=== PATIENT | male | born 1945 | race Caucasian/White ===

== ENCOUNTER 2022-11-05 13:45 | Emergency (ER) | payer MEDICARE, BC ==
[2022-11-05 14:41] LABS: HEMATOCRIT 42.9 % (38.4-49.7); HEMOGLOBIN 15.1 g/dL (12.9-16.9); MEAN CORPUSCULAR HEMOGLOBIN 28.3 pg (31.6-35.5); MEAN CORPUSCULAR HGB CONC 35.2 g/dL (31.6-35.5); MEAN CORPUSCULAR VOLUME 80.5 fL (81.4-99.0); RED BLOOD CELL COUNT 5.33 M/uL (4.14-5.76); WHITE BLOOD CELL COUNT,WBC 6.5 K/uL (3.2-11.0)
[2022-11-05] MEDS ORDERED: Sodium Chloride 0.9% 500 ML IV ONE (14:49)
[2022-11-05 15:10] LABS: CALCIUM 9.4 mg/dL (8.5-10.1); CREATININE 1.5 mg/dL (0.8-1.3); EST CRCL DRUG DOSING (CG) 43.94 mL/min; MAGNESIUM 2.2 mg/dL (1.8-2.4); POTASSIUM,K 3.2 mmol/L (3.6-5.2); TSH ULTRASENSITIVE 5.08 uIU/mL (0.358-3.740)
[2022-11-05 15:12] LABS: ANION GAP 13.2 mmol/L (5.0-14.0)
[2022-11-05] MEDS ORDERED: Potassium Chloride 20 MEQ Tab.ER PO ONE (15:23)
[2022-11-05] MEDS ORDERED: Metoprolol Tartrate 25 MG Tab PO ONE (15:48)
== END 2022-11-05 17:05 ==
LOC: JP.ED 13:45
DX: I49.8 Other specified cardiac arrhythmias (principal); I10 Essential (primary) hypertension; E03.9 Hypothyroidism, unspecified; E78.00 Pure hypercholesterolemia, unspecified; Z79.899 Other long term (current) drug therapy
CPT/HCPCS: 36415; 80048; 82947; 83735; 84443; 84484; 85027; 93005; 96360; 99285; A9270; J7040